=== PATIENT | female | born 2005 | race Caucasian/White ===

== ENCOUNTER 2025-03-03 17:24 | Emergency (ER) | payer BC ==
[2025-03-03 18:38] VITALS: TEMP 97
[2025-03-03 18:53] VITALS: O2SAT 98
[2025-03-03] MEDS ORDERED: TYLENOL 325 MG ONE (18:54)
[2025-03-03] MEDS: TYLENOL 325 MG PO STA (18:55)
[2025-03-03 19:08] VITALS: RESP 14
--- NOTE | 2025-03-03 19:28 | ERPHSYRPT ---
- History of Present Illness Time Seen by Provider: 03/03/25 19:17 Source: patient Patient Subjective Stated Complaint: patient stated she was reaching between her seat and dash and patient stated that she felt her hand get hooked on something and when she pulled her hand out she noticed a laceration Triage Nursing Assessment: patient presents to ed via private vehicle, patient able to walk into ed without complication, patient has a small laceration to left hand pointer finger measuring 0.5 cm x 0.7 cm with small amount of sanginous drainage, patient's radial pulse present, skin n/w/d, patient able to wiggle finger with minimal discomfort Physician History: This is a 19-year-old [id number] female who cut her left index finger on the volar aspect with a clean pocket knife from home prior to arrival. Patient held pressure for bleeding. Last tetanus 2 years ago. Allergies/Adverse Reactions: atomoxetine [From Strattera] Allergy (Verified 03/03/25 18:31) Home Medications: No Reportable Medications [No Reported Medications] 03/03/25 [History] Hx Tetanus, Diphtheria Vaccination/Date Given: Yes Travel Risk - International Travel Have you traveled outside of the country in past 3 weeks: No - Emerging Infectious Disease Are you exhibiting symptoms associated with any current EIDs: No - Review of Systems All Other Systems: Reviewed and Negative - Past Medical History Pertinent Past Medical History: Yes Other Medical History: ADHD - Past Surgical History Past Surgical History: No - Female History Hx Now: No - Social History Smoking Status: Current every day smoker Exposure to second hand smoke: Yes Drug Use: marijuana - Social Determinants of Health Will the patient participate in the screening: Yes Do you worry about a steady place to live?: No Do you have any problems with any of the following?: No known problems In the past 12 months,have you had to go without utilities?: No Transportation Issues: No Has anyone in your support network made you feel unsafe?: No Have you or anyone in your house had to go w/o enough food: No - Nursing Vital Signs Nursing Vital Signs: Initial Vital Signs Temperature 97 F 03/03/25 17:26 Pulse Rate 92 H 03/03/25 17:26 Respiratory Rate 16 03/03/25 17:26 Blood Pressure 161/68 03/03/25 17:26 O2 Sat by Pulse Oximetry 99 03/03/25 17:26 Pain Scale Pain Intensity 7 - Physical Exam SpO2: 98 Comments: 03/03/25 19:33 General: Well-nourished well-developed. No apparent distress. HEENT: Normocephalic atraumatic no obvious facial or neck deformity or injury. Neck: Supple. No deformity or mass noted. CV: RRR NL Perfusion. No edema Resp: No Respiratory distress or adventitious breath sounds Abd: ND SNT MSK: No deformity or TTP. Finger #2 left side with superficial avulsed laceration at PIP joint with bleeding controlled. Distal sensory and motor intact. Can flex and extend finger at MCP, PIP and DIP joint. Neuro: Alert and [place] x4. No gross focal neurologic changes Psych: No SI, HI or grave disability Procedures - Laceration/Wound Repair Left Volar Finger Time of Procedure: :25 Wound Location: Left (finger #2 volar at PIP joint w/ bleeding controlled) Wound Length (cm): 0.5 Wound's Depth, Shape: superficial Wound Explored: clean Irrigated: Yes Hibiclens Prep: Yes Wound Repaired With: Dermabond (Bulky dressing applied to minimize bending/reopening wound. ) Ordered Tests: Medication Summary Discontinued Medications Generic Name Dose Route Start Last Admin Trade Name Freq PRN Reason Stop Dose Admin Acetaminophen 650 mg 03/03/25 18:50 03/03/25 18:55 Acetaminophen 325 Mg Tablet PO 03/03/25 18:51 650 mg STAT STA Administration - Progress Progress Note: 03/03/25 19:34 Skin adhesive placed and bulky dressing to keep from bending. 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 Wound care instructions given the patient's condition was discussed with themselves and/or family members in great detail. Precautions are given and need to return or call 911 immediately for any changes or worsening are discussed. Instructions on patient's condition and noting that conditions can change or worsen and that diagnosis are presumptive and can evolve are discussed. All questions were answered. All concerns addressed at this time - Departure Departure Disposition: Home Clinical Impression: Laceration of left index finger Condition: Stable Critical Care Time: No Referrals: DOCTOR,NO FAMILY [Primary Care Provider, UNKNOWN] - Follow up/PCP as directed Instructions: Skin glue - ED discharge instructions
[2025-03-03 19:32] VITALS: BP 119/84; PULSE 90
== END 2025-03-03 19:41 | disposition home or self-care (01) ==
LOC: ED 17:24
DX: S61.211A Laceration without foreign body of left index finger without damage to nail, initial encounter (principal); W26.0XXA Contact with knife, initial encounter; Z72.0 Tobacco use

== ENCOUNTER 2025-03-05 18:15 | Emergency (ER) | payer BC ==
[2025-03-05 18:30] VITALS: TEMP 98.5
--- NOTE | 2025-03-05 18:39 | ERPHSYRPT ---
- History of Present Illness Source: patient Exam Limitations: no limitations Patient Subjective Stated Complaint: patient complains of earache, n/v, headache, sore throat Triage Nursing Assessment: patient presents to ed via private vehicle, patient able to walk into ed without complication, patient alert and oriented x 4, skin n/w/d, patient's lungs clear throughout all saavedra, no cough noted, denies sob Timing/Duration: abrupt onset ENT Location: ear (L), throat Prearrival Treatment: no prearrival treatment Associated Symptoms: ear pain (L), sore throat, No difficulty swallowing, No voice change Hx Tetanus, Diphtheria Vaccination/Date Given: Yes - History of Present Illness Time Seen by Provider: 03/05/25 18:35 Physician History: This is a 19-year-old white female patient who arrives to the emergency department by private vehicle with a complaint of left earache, sore throat symptoms. There are other individuals in the home she is staying in with similar symptoms. Her symptoms began this morning. She is staying at home that is new to her. Patient denies fever. She denies cough. She has no chest pain. She is not short of breath. She has no abdominal pain. She has had no nausea vomiting or diarrhea symptoms. Patient is concerned of possible COVID infection or strep pharyngitis. (JOS BUSH) Allergies/Adverse Reactions: atomoxetine [From Strattera] Allergy (Verified 03/05/25 18:23) Travel Risk - International Travel Have you traveled outside of the country in past 3 weeks: No - Emerging Infectious Disease Are you exhibiting symptoms associated with any current EIDs: No Symptoms: Headaches/Body Aches/ - Review of Systems Constitutional: No Symptoms Eyes: No Symptoms Ears, Nose, & Throat: Ear Pain (Left side), Throat Pain Respiratory: No Symptoms Cardiac: No Symptoms Abdominal/Gastrointestinal: No Symptoms Genitourinary Symptoms: No Symptoms Musculoskeletal: Arthralgias, Myalgias Skin: No Symptoms Neurological: No Symptoms Psychological: No Symptoms Endocrine: No Symptoms Hematologic/Lymphatic: No Symptoms Immunological/Allergic: No Symptoms All Other Systems: Reviewed and Negative - Past Medical History Pertinent Past Medical History: Yes Other Medical History: ADHD - Past Surgical History Past Surgical History: No - Female History Hx Last Menstrual Period: 03/05/25 Hx Now: No - Social History Smoking Status: Current every day smoker Exposure to second hand smoke: Yes Drug Use: marijuana - Social Determinants of Health Will the patient participate in the screening: Yes Do you worry about a steady place to live?: No Do you have any problems with any of the following?: No known problems In the past 12 months,have you had to go without utilities?: No Transportation Issues: No Has anyone in your support network made you feel unsafe?: No Have you or anyone in your house had to go w/o enough food: No - Physical Exam General Appearance: no apparent distress, alert Eye Exam: bilateral eye: normal inspection, PERRL, EOMI Ear Exam: right ear: canal normal, TM normal, left ear: erythema, bilateral ear: auricle normal Throat Exam: moist mucus membranes, pharynx tenderness (With associated mild redness), No dental tenderness, No voice changes Neck Exam: normal inspection, non-tender, supple, full range of motion Cardiovascular/Respiratory Exam: chest non-tender, normal breath sounds, heart sounds normal, no respiratory distress, tachycardia (Mild) Abdominal Exam: non-tender, spleenomegaly Neurologic Exam: alert, oriented x 3, cooperative, nml cerebellar function, nml station & gait, sensation nml Skin Exam: normal color, warm, dry SpO2 Interpretation: normal SpO2: 99 O2 Delivery: Room Air - Nursing Vital Signs Nursing Vital Signs: Initial Vital Signs Temperature 98.5 F 03/05/25 18:15 Pulse Rate 115 H 03/05/25 18:15 Respiratory Rate 18 03/05/25 18:15 Blood Pressure 151/89 03/05/25 18:15 O2 Sat by Pulse Oximetry 99 03/05/25 18:15 Pain Scale Pain Intensity 6 Lab/Rad Data: Laboratory Results 03/05/25 03/05/25 Range/Units 18:51 18:51 Influenza Type A Ag NEGATIVE (NEGATIVE) Influenza Type B Ag NEGATIVE (NEGATIVE) RSV (PCR) NEGATIVE (NEGATIVE) SARS-CoV-2 (PCR) NEGATIVE (NEGATIVE) Group A Strep Antibody NOT DETECTED (NEGATIVE) - Progress Progress Note: 03/05/25 18:58 My medical decision making and the assignment of low complexity of this patient's medical issue is is based on review of the patient's past medical history, review of patient medication list, reviewed patient drug allergy list, history of present illness and physical findings on examination. The workup in this patient includes viral swabs and group A strep test. Differential diagnosis includes but is not limited to viral pharyngitis, bacterial pharyngitis/strep pharyngitis, viral illness, left otitis media, left otitis externa I am transferring care of this patient to Dr. Corine Lewis at shift change. He will follow-up on the pending study results and make final disposition. (JOS BUSH) Patient swabs are negative however given her erythema to her TMs on the left side patient restarted on amoxicillin recommended close return precautions and ENT follow-up patient be discharged this time 03/05/25 19:47 (RONEY LEWIS) - Departure Departure Disposition: Home Critical Care Time: No - Departure Clinical Impression: Earache on left Pharyngitis Qualifiers: Pharyngitis/tonsillitis etiology: unspecified etiology Qualified Code(s): J02.9 - Acute pharyngitis, unspecified Condition: Stable Referrals: DOCTOR,NO FAMILY [Primary Care Provider, UNKNOWN] - Follow up/PCP as directed Instructions: Ear infection - ED discharge instructions, Ear infections in adults Prescriptions: Amoxicillin 875 mg PO BID 10 Days #20 tablet
[2025-03-05 19:37] LABS: INFLUENZA A NEGATIVE (NEGATIVE); INFLUENZA B NEGATIVE (NEGATIVE); RESPIRATORY SYNCTIAL VIRUS NEGATIVE (NEGATIVE); SARS-CoV-2 Xpert Express NEGATIVE (NEGATIVE)
[2025-03-05 20:03] VITALS: BP 111/76; PULSE 68; RESP 18; O2SAT 100
== END 2025-03-05 20:09 | disposition home or self-care (01) ==
LOC: ED 18:15
DX: H92.02 Otalgia, left ear (principal); J02.9 Acute pharyngitis, unspecified; Z72.0 Tobacco use; Z79.899 Other long term (current) drug therapy